=== PATIENT | female | born 1960 | race Caucasian/White ===

== ENCOUNTER → 2021-07-12 | Outpatient (CLI) | payer OTHER | LOC: KOH-I 11:09 | DX: M96.1 Postlaminectomy syndrome, not elsewhere classified (principal); M47.816 Spondylosis without myelopathy or radiculopathy, lumbar region; M41.9 Scoliosis, unspecified | CPT/HCPCS: 72110 ==

== ENCOUNTER → 2021-07-16 | Outpatient (CLI) | payer OTHER | LOC: MRI 10:36 | DX: M96.1 Postlaminectomy syndrome, not elsewhere classified (principal); M51.36 Other intervertebral disc degeneration, lumbar region | CPT/HCPCS: 72148 ==

== ENCOUNTER → 2021-08-03 | Outpatient (CLI) | payer OTHER | LOC: KOH-I 08-02 09:30 | DX: Z01.818 Encounter for other preprocedural examination (principal); M48.061 Spinal stenosis, lumbar region without neurogenic claudication; M51.36 Other intervertebral disc degeneration, lumbar region | CPT/HCPCS: 72131 ==

== ENCOUNTER → 2021-09-08 | Outpatient (CLI) | payer OTHER | LOC: CT 09-02 08:00 | PROVIDERS: Student in an Organized Health Care Education/Training Program | DX: C43.61 Malignant melanoma of right upper limb, including shoulder (principal) | CPT/HCPCS: 36415; 71260; 80053; Q9967 ==

== ENCOUNTER 2021-10-03 15:36 | Emergency (ER) | payer OTHER ==
[2021-10-03 19:35] LABS: HEMOGLOBIN 14.9 gm/dl (12.3-15.3); RED BLOOD COUNT 5.3 M/UL (4.00-5.10); WHITE BLOOD COUNT 11.8 K/UL (4.5-11.0)
== END 2021-10-04 03:00 | disposition home or self-care (01) ==
LOC: ER1 15:36
PROVIDERS: Physician Assistant
DX: D25.9 Leiomyoma of uterus, unspecified (principal); I10 Essential (primary) hypertension; E78.5 Hyperlipidemia, unspecified; E11.9 Type 2 diabetes mellitus without complications; Z79.84 Long term (current) use of oral hypoglycemic drugs
CPT/HCPCS: 80053; 81001; 85025; 99284; Q9967

== ENCOUNTER → 2021-11-14 | Outpatient (CLI) | payer OTHER | LOC: EXRD 10:05 | DX: M81.0 Age-related osteoporosis without current pathological fracture (principal) | CPT/HCPCS: 77080 ==

== ENCOUNTER → 2021-11-14 | Outpatient (CLI) | payer OTHER | LOC: LAB 11:19 | DX: Z01.812 Encounter for preprocedural laboratory examination (principal) | CPT/HCPCS: 36415; 83036 ==

== ENCOUNTER → 2021-11-23 | Day surgery (SDC) | payer OTHER ==
[~2021-11-23] MED LIST: ATORVASTATIN CA40 MG PO; CELECOXIB100 MG PO; EFFEXOR XR 75 M75 MG PO; ESCITALOPRAM OX10 MG PO; GLIPIZIDE5 MG PO; HYDROCHLOROTH12.5 MG PO; HYDROCODON-ACE1 EAC4 PO; IBUPROFEN800 MG PO; LISINOPRIL20 MG PO; METFORMIN HCL750 MG PO; MIRTAZAPINE15 MG PO; RYBELSUS14 MG PO; WAL-ZYR10 M1 PO
== END | disposition home or self-care (01) ==
LOC: OR 06:55
DX: D12.3 Benign neoplasm of transverse colon (principal); K74.60 Unspecified cirrhosis of liver; K64.1 Second degree hemorrhoids; K75.81 Nonalcoholic steatohepatitis (NASH); K31.9 Disease of stomach and duodenum, unspecified; K26.7 Chronic duodenal ulcer without hemorrhage or perforation; K59.09 Other constipation; R16.1 Splenomegaly, not elsewhere classified; E66.01 Morbid (severe) obesity due to excess calories; I10 Essential (primary) hypertension; E78.5 Hyperlipidemia, unspecified; E11.9 Type 2 diabetes mellitus without complications; Z68.41 Body mass index [BMI] 40.0-44.9, adult; Z79.84 Long term (current) use of oral hypoglycemic drugs; Z79.899 Other long term (current) drug therapy; Z20.822 Contact with and (suspected) exposure to COVID-19
CPT/HCPCS: 82962; J2704; J7040

== ENCOUNTER → 2022-02-10 | Outpatient (CLI) | payer OTHER | LOC: MRI 11:58 | DX: M48.061 Spinal stenosis, lumbar region without neurogenic claudication (principal); M54.16 Radiculopathy, lumbar region; E11.9 Type 2 diabetes mellitus without complications; M51.36 Other intervertebral disc degeneration, lumbar region; M51.37 Other intervertebral disc degeneration, lumbosacral region | CPT/HCPCS: 36415; 72158; 82565; 84520; A9577 ==